=== PATIENT | male | born 1985 | race African-American/Black ===

== ENCOUNTER 2018-12-05 14:04 | Inpatient (IN) | payer OTHER ==
[2018-12-05 16:32] VITALS: BMI 20.3
--- NOTE | 2018-12-05 18:35 | HP ---
COWS - Scale Resting Pulse: 1= [place] 81-100 Sweatin=Flushed/Facial Moisture Restless Observation: 1= Difficult to Sit Still Pupil Size: 0= Normal to Room Light Bone or Joint Aches: 2= Severe Diffuse Aches Runny Nose/ Eye Tearin= Runny Nose/Eyes GI Upset > 30mins: 0= None Tremor Observation: 2= Slight Tremor Visible Yawning Observation: 2= >3x During Session Anxiety or Irritability: 2=Irritable/Anxious Goose Flesh Skin: 3=Piloerection COWS Score: 17 CIWA Score - Admission Criteria OASAS Guidelines: Admission for Medically Managed Detox: Requires at least one of the followin. CIWA greater than 12 2. Seizures within the past 24 hours 3. Delirium tremens within the past 24 hours 4. Hallucinations within the past 24 hours 5. Acute intervention needed for co occurring medical disorder 6. Acute intervention needed for co occurring psychiatric disorder 7. Severe withdrawal that cannot be handled at a lower level of care (continued vomiting, continued diarrhea, abnormal vital signs) requiring intravenous medication and/or fluids 8. Admitting History and Physical - Admission Chief Complaint: I want to stop being high. History Source: Patient Limitations to Obtaining History: No Limitations - Past Surgical History Past Surgical History: Yes: None - Smoking History Smoking history: Current every day smoker Have you smoked in the past 12 months: Yes Aproximately how many cigarettes per day: 10 - Alcohol/Substance Use Hx Alcohol Use: No History of Substance Use: reports: Cocaine, Heroin - Social History Usual Living Arrangement: Yes: Alone ADL: Independent History of Recent Travel: No Admission ROS [facility] - HPI Chief Complaint: I want to stop getting high. Allergies/Adverse Reactions: Allergies Allergy/AdvReac Type Severity Reaction Status Date / Time No Known Allergies Allergy Verified 12/05/18 16:26 History of Present Illness: pt is a 33yr old male with a history of heroin dependence seeking detox for treatment. pt states he has a cold. pt has a mild temp 101.3. encouraged pt to hydrate, ask for tylenol. pt was told if temp continue he will be sent to [facility] ed for evaluation. pt in agreement. Exam Limitations: No Limitations - Ebola screening Have you traveled outside of the country in the last 21 days: No Have you had contact with anyone from an Ebola affected area: No Have you been sick,other than usual withdrawal symptoms: No Do you have a fever: No - Review of Systems Constitutional: Chills, Diaphoresis, Night Sweats, Changes in sleep EENT: reports: Tearing, Hearing Loss, Nose Congestion Respiratory: reports: No Symptoms reported Cardiac: reports: No Symptoms Reported GI: reports: Poor Fluid Intake : reports: No Symptoms Reported Musculoskeletal: reports: Back Pain Integumentary: reports: Flushing, Sweating Neuro: reports: Tingling, Tremors Endocrine: reports: Excessive Sweating, Flushing, Intolerance to Cold, Intolerance to Heat Hematology: reports: No Symptoms Reported Psychiatric: reports: Judgement Intact, Mood/Affect Appropiate, Orientated x3, Agitated, Anxious Other Systems: Reviewed and Negative Patient History - Patient Medical History Hx Anemia: No Hx Asthma: No Hx Chronic Obstructive Pulmonary Disease (COPD): No Hx Cancer: No Hx Cardiac Disorders: No Hx Congestive Heart Failure: No Hx Hypertension: No Hx Hypercholesterolemia: No Hx Pacemaker: No HX Cerebrovascular Accident: No Hx Seizures: No Hx Dementia: No Hx Diabetes: No Hx Gastrointestinal Disorders: No Hx Liver Disease: No Hx Genitourinary Disorders: No Hx Sexually Transmitted Disorders: No Hx Renal Disease (ESRD): No Hx Thyroid Disease: No Hx Human Immunodeficiency Virus (HIV): No (pt denies) Hx Hepatitis C: No Hx Depression: No Hx Suicide Attempt: No (pt denies) Hx Bipolar Disorder: No Hx Schizophrenia: No - Patient Surgical History Past Surgical History: No - PPD History Previous Implant?: Yes Documented Results: Negative w/o proof Implanted On Prior R Admission?: Yes PPD to be Administered?: Yes - Reproductive History Patient is a Female of Child Bearing Age (11 -55 yrs old): No - Smoking Cessation Smoking history: Current every day smoker Have you smoked in the past 12 months: Yes Aproximately how many cigarettes per day: 10 Hx Chewing Tobacco Use: No Initiated information on smoking cessation: Yes 'Breaking Loose' booklet given: 12/05/18 - Substance & Tx. History Hx Alcohol Use: No Hx Substance Use: Yes Substance Use Type: Heroin Hx Substance Use Treatment: Yes (last detox a year ago at [facility]) - Substances abused Heroin Substance route: Injection Frequency: Daily Amount used: 1 bundle Age of first use: 25 Date of last use: 12/05/18 Admission Physical Exam [facility] - Vital Signs Vital Signs: Vital Signs - 24 hr 12/05/18 16:24 Temperature 101.3 F H Pulse Rate 82 Respiratory 16 Rate Blood Pressure 120/63 - Physical General Appearance: Yes: Appropriately Dressed, Moderate Distress, Tremorous, Irritable, Sweating, Anxious HEENTM: Yes: Normal Voice, Nasal Congestion, Rhinorrhea Respiratory: Yes: Lungs Clear, Normal Breath Sounds, No Respiratory Distress Breast: Yes: Within Normal Limits Cardiology: Yes: Regular Rhythm, Regular Rate, S1, S2 Abdominal: Yes: Normal Bowel Sounds, Non Tender, Soft Genitourinary: Yes: Within Normal Limits Back: Yes: Normal Inspection Musculoskeletal: Yes: full range of Motion, Gait Steady Extremities: Yes: Normal Capillary Refill, Normal Inspection, Non-Tender, Tremors Neurological: Yes: Fully Oriented, Alert, Normal Response Integumentary: Yes: Normal Color, Diaphoresis, Track [place] Lymphatic: Yes: Within Normal Limits - Diagnostic (1) Opioid dependence with withdrawal Current Visit: Yes Status: Chronic (2) Nicotine dependence Current Visit: Yes Status: Chronic Qualifiers: Nicotine product type: cigarettes Substance use status: uncomplicated Qualified Code(s): F17.210 - Nicotine dependence, cigarettes, uncomplicated Cleared for Admission [facility] - Detox or Rehab [facility] Level of Care: Medically Managed Detox Regimen/Protocol: Methadone Breathalyzer - Breathalyzer Breathalyzer: 0 Urine Drug Screen - Test Device Lot number: [id number] Expiration date: 08/12/30 - Control Is test valid?: Yes - Results Drug screen NEGATIVE: No Urine drug screen results: SONIA-Cocaine, FEN-Fentanyl, MOP-Opiates Inpatient Rehab Admission - Rehab Decision to Admit Inpatient rehab admission?: No
[2018-12-05] MEDS ORDERED: P-EPHED 60MG/TRIPROLIDI 2.5MG TABLET PO PRN (18:42)
[2018-12-05] MEDS ORDERED: MAGNESIUM HYDROX 2400MG/30ML ORAL SUSPENSION 30 ML CUP PO PRN (18:42)
[2018-12-05] MEDS ORDERED: BISMUTH SUBSALICYLATE 524 MG/30 ML UD PO PRN (18:42)
[2018-12-05] MEDS ORDERED: NICOTINE POLACRILEX 4 MG GUM BUC PRN (18:42)
[2018-12-05] MEDS ORDERED: cloNIDine HCL 0.1 MG TABLET PO PRN (18:42)
[2018-12-05] MEDS ORDERED: IBUPROFEN 400 MG TABLET (FP) PO PRN (18:42)
[2018-12-05] MEDS ORDERED: MAG HYDROX/AL HYDROX/SIMETH 30 ML UNIT-DOSE CUP PO PRN (18:42)
[2018-12-05] MEDS ORDERED: ONDANSETRON *ODT* 4 MG TABLET SL PRN (18:42)
[2018-12-05] MEDS ORDERED: hydrOXYzine PAMOATE 25 MG CAPSULE (FP) PO PRN (18:42)
[2018-12-05] MEDS ORDERED: MAGNESIUM CITRATE 300 ML BOTTLE PO PRN (18:42)
[2018-12-05] MEDS ORDERED: METHADONE HCL 10 MG TABLET (FOR DETOX USE ONLY) PO ONE (18:42)
[2018-12-05] MEDS ORDERED: METHOCARBAMOL 500 MG TABLET PO PRN (18:42)
[2018-12-05] MEDS ORDERED: MENTHOL/PHENOL 1 EACH UD MM PRN (18:42)
[2018-12-05] MEDS ORDERED: ACETAMINOPHEN 325 MG TABLET (FP) PO PRN ×2 (18:42)
[2018-12-05] MEDS: diazePAM 5 MG TABLET PO PRN (20:06)
[2018-12-05] MEDS: THIAMINE HCL 100 MG TABLET (FP) PO SCH (23:10)
[2018-12-06] MEDS ORDERED: METHADONE HCL 5 MG TABLET (FOR DETOX USE ONLY) ONE (08:52)
[2018-12-06] MEDS ORDERED: METHADONE HCL 10 MG TABLET (FOR DETOX USE ONLY) ONE (08:53)
[2018-12-06] MEDS: PRENATAL VITAMINS W/ FOLIC ACID TABLET (FP) PO SCH (09:39)
[2018-12-06 09:55] LABS: HEMATOCRIT 35.4 % (35.4-49); HEMOGLOBIN 11.3 GM/dL (11.7-16.9); MCH 26.6 pg (25.7-33.7); MCHC 31.8 g/dl (32.0-35.9); MEAN CELL VOLUME 83.7 fl (80-96); MEAN PLT VOLUME 7.4 fl (7.5-11.1); PLATELET COUNT 261 K/MM3 (134-434); RBC 4.23 M/mm3 (4.00-5.60); RDW 15.7 % (11.9-15.9); WHITE BLOOD COUNT 4.5 K/mm3 (4.0-10.0)
[2018-12-06] MEDS ORDERED: METHADONE (DETOX) 20 MG, METHADONE (DETOX) 5 MG PO ONE (10:00)
[2018-12-06 10:16] LABS: ALBUMIN 3.1 g/dl (3.4-5.0); BILIRUBIN,TOTAL 0.5 mg/dL (0.2-1); CALCIUM 8.7 mg/dL (8.5-10.1); CREATININE 0.8 mg/dL (0.55-1.3); POTASSIUM 4.2 mmol/L (3.5-5.1); TOT PROT 7.9 g/dl (6.4-8.2)
--- NOTE | 2018-12-06 11:06 | PN ---
BHS COWS - Scale Resting Pulse: 0= [place] 80 or Below Sweatin= No chills or Flushing Restless Observation: 1= Difficult to Sit Still Pupil Size: 1= Pupils >than Normal Bone or Joint Aches: 1= Mild Discomfort Runny Nose/ Eye Tearin= Nasal Congestion GI Upset > 30mins: 1= Stomach Cramp Tremor Observation of Outstretched Hands: 1= Tremor [place], Not Seen Yawning Observation: 1= 1-2x During Session Anxiety or Irritability: 2=Irritable/Anxious Goose Flesh Skin: 0=Smooth Skin COWS Score: 9 S Progress Note (SOAP) Subjective: alert,irritable,anxious,interrupted sleep,pain in the body and back Objective: 12/06/18 11:05 Vital Signs Temperature 98.6 F 12/06/18 09:40 Pulse Rate 71 12/06/18 09:40 Respiratory Rate 18 12/06/18 09:40 Blood Pressure 126/74 12/06/18 09:40 O2 Sat by Pulse Oximetry (%) Laboratory Last Values WBC 4.5 K/mm3 (4.0-10.0) 12/06/18 08:15 RBC 4.23 M/mm3 (4.00-5.60) 12/06/18 08:15 Hgb 11.3 GM/dL (11.7-16.9) L 12/06/18 08:15 Hct 35.4 % (35.4-49) 12/06/18 08:15 MCV 83.7 fl (80-96) 12/06/18 08:15 MCH 26.6 pg (25.7-33.7) 12/06/18 08:15 MCHC 31.8 g/dl (32.0-35.9) L 12/06/18 08:15 RDW 15.7 % (11.9-15.9) 12/06/18 08:15 Plt Count 261 K/MM3 (134-434) 12/06/18 08:15 MPV 7.4 fl (7.5-11.1) L 12/06/18 08:15 Sodium 139 mmol/L (136-145) 12/06/18 08:15 Potassium 4.2 mmol/L (3.5-5.1) 12/06/18 08:15 Chloride 105 mmol/L (98-107) 12/06/18 08:15 Carbon Dioxide 28 mmol/L (21-32) 12/06/18 08:15 Anion Gap 6 MMOL/L (8-16) L 12/06/18 08:15 BUN 10.0 mg/dL (7-18) 12/06/18 08:15 Creatinine 0.8 mg/dL (0.55-1.3) 12/06/18 08:15 Est GFR (CKD-EPI)AfAm 135.08 12/06/18 08:15 Est GFR (CKD-EPI)NonAf 116.55 12/06/18 08:15 Random Glucose 86 mg/dL (74-106) 12/06/18 08:15 Calcium 8.7 mg/dL (8.5-10.1) 12/06/18 08:15 Total Bilirubin 0.5 mg/dL (0.2-1) 12/06/18 08:15 AST 58 U/L (15-37) H 12/06/18 08:15 ALT 89 U/L (13-61) H 12/06/18 08:15 Alkaline Phosphatase 86 U/L (45-117) 12/06/18 08:15 Total Protein 7.9 g/dl (6.4-8.2) 12/06/18 08:15 Albumin 3.1 g/dl (3.4-5.0) L 12/06/18 08:15 Assessment: 12/06/18 11:06 withdrawal symptom Plan: continue detox methadone regimen
--- NOTE | 2018-12-06 13:37 | EKG ---
Test Reason : Blood Pressure : / mmHG Vent. Rate : 058 BPM Atrial Rate : 058 BPM P-R Int : 144 ms QRS Dur : 096 ms QT Int : 436 ms P-R-T Axes : 022 085 065 degrees QTc Int : 428 ms SINUS BRADYCARDIA OTHERWISE NORMAL ECG NO PREVIOUS ECGS AVAILABLE Confirmed by LORNA RILEY, PETE ([id number]) on 12/06/2018 1:36:58 PM Referred By: Confirmed By:PETE ROTHMAN MD
[2018-12-06] MEDS: MELATONIN 5 MG TABLETS PO PRN (22:26)
[2018-12-06] MEDS: THIAMINE HCL 100 MG TABLET (FP) PO SCH (22:26)
[2018-12-07] MEDS ORDERED: METHADONE HCL 10 MG TABLET (FOR DETOX USE ONLY) PO ONE (10:00)
[2018-12-07] MEDS: PRENATAL VITAMINS W/ FOLIC ACID TABLET (FP) PO SCH (10:13)
[2018-12-07 10:44] LABS: SGOT/AST 56 U/L (15-37); SGPT/ALT 93 U/L (13-61)
--- NOTE | 2018-12-07 10:48 | PN ---
BHS COWS - Scale Resting Pulse: 0= [place] 80 or Below Sweatin= No chills or Flushing Restless Observation: 1= Difficult to Sit Still Pupil Size: 1= Pupils >than Normal Bone or Joint Aches: 1= Mild Discomfort Runny Nose/ Eye Tearin= Nasal Congestion GI Upset > 30mins: 1= Stomach Cramp Tremor Observation of Outstretched Hands: 1= Tremor [place], Not Seen Yawning Observation: 0= None Anxiety or Irritability: 2=Irritable/Anxious Goose Flesh Skin: 0=Smooth Skin COWS Score: 8 BHS Progress Note (SOAP) Subjective: alert,irritable,anxious,interrupted sleep,pain in the body, Objective: 12/07/18 10:47 Vital Signs Temperature 98.4 F 12/07/18 09:34 Pulse Rate 66 12/07/18 09:34 Respiratory Rate 18 12/07/18 09:34 Blood Pressure 112/63 12/07/18 09:34 O2 Sat by Pulse Oximetry (%) Laboratory Results - last 24 hr 12/06/18 12/07/18 08:15 07:20 AST 56 H ALT 93 H RPR Titer Nonreactive Assessment: 12/07/18 10:48 withdrawal symptom Plan: continue detox methdone regimen
[2018-12-07] MEDS: diazePAM 5 MG TABLET PO PRN (22:21)
[2018-12-07] MEDS: THIAMINE HCL 100 MG TABLET (FP) PO SCH (22:22)
[2018-12-08] MEDS ORDERED: METHADONE HCL 10 MG TABLET (FOR DETOX USE ONLY) ONE (09:52)
[2018-12-08] MEDS ORDERED: METHADONE HCL 5 MG TABLET (FOR DETOX USE ONLY) ONE (09:52)
[2018-12-08] MEDS ORDERED: METHADONE (DETOX) 10 MG, METHADONE (DETOX) 5 MG PO ONE (10:00)
[2018-12-08] MEDS: PRENATAL VITAMINS W/ FOLIC ACID TABLET (FP) PO SCH (10:43)
--- NOTE | 2018-12-08 11:45 | PN ---
S COWS - Scale Resting Pulse: 0= [place] 80 or Below Sweatin= Chills/Flushing Restless Observation: 1= Difficult to Sit Still Pupil Size: 0= Normal to Room Light Bone or Joint Aches: 2= Severe Diffuse Aches Runny Nose/ Eye Tearin= None GI Upset > 30mins: 0= None Tremor Observation of Outstretched Hands: 2= Slight Tremor Visible Yawning Observation: 1= 1-2x During Session Anxiety or Irritability: 2=Irritable/Anxious Goose Flesh Skin: 0=Smooth Skin COWS Score: 9 S Progress Note (SOAP) Subjective: c/o sweats, headache, anxiety, and irritability. Objective: 12/08/18 11:44 Vital Signs 12/08/18 12/08/18 06:27 08:00 Temperature 98.6 F 98.2 F Pulse Rate 61 65 Respiratory 18 18 Rate Blood Pressure 108/67 107/57 L Lab Results WBC 4.5 K/mm3 (4.0-10.0) 12/06/18 08:15 RBC 4.23 M/mm3 (4.00-5.60) 12/06/18 08:15 Hgb 11.3 GM/dL (11.7-16.9) L 12/06/18 08:15 Hct 35.4 % (35.4-49) 12/06/18 08:15 MCV 83.7 fl (80-96) 12/06/18 08:15 MCHC 31.8 g/dl (32.0-35.9) L 12/06/18 08:15 RDW 15.7 % (11.9-15.9) 12/06/18 08:15 Plt Count 261 K/MM3 (134-434) 12/06/18 08:15 Sodium 139 mmol/L (136-145) 12/06/18 08:15 Potassium 4.2 mmol/L (3.5-5.1) 12/06/18 08:15 Chloride 105 mmol/L (98-107) 12/06/18 08:15 Carbon Dioxide 28 mmol/L (21-32) 12/06/18 08:15 Anion Gap 6 MMOL/L (8-16) L 12/06/18 08:15 BUN 10.0 mg/dL (7-18) 12/06/18 08:15 Creatinine 0.8 mg/dL (0.55-1.3) 12/06/18 08:15 Random Glucose 86 mg/dL (74-106) 12/06/18 08:15 Calcium 8.7 mg/dL (8.5-10.1) 12/06/18 08:15 Labs noted. Assessment: 12/08/18 11:45 AOX3, in no acute respiratory distress. Full ROM, ambulating in the unit. withdrawal symptoms. Plan: continue detox.
[2018-12-08] MEDS: MELATONIN 5 MG TABLETS PO PRN (22:23)
[2018-12-08] MEDS: THIAMINE HCL 100 MG TABLET (FP) PO SCH (22:23)
[2018-12-09] MEDS ORDERED: METHADONE HCL 10 MG TABLET (FOR DETOX USE ONLY) PO ONE (10:00)
[2018-12-09] MEDS: PRENATAL VITAMINS W/ FOLIC ACID TABLET (FP) PO SCH (10:35)
--- NOTE | 2018-12-09 13:45 | PN ---
BHS COWS - Scale Resting Pulse: 0= [place] 80 or Below Sweatin= No chills or Flushing Restless Observation: 0= Sits Still Pupil Size: 0= Normal to Room Light Bone or Joint Aches: 1= Mild Discomfort Runny Nose/ Eye Tearin= None GI Upset > 30mins: 1= Stomach Cramp Tremor Observation of Outstretched Hands: 0= None Yawning Observation: 1= 1-2x During Session Anxiety or Irritability: 2=Irritable/Anxious Goose Flesh Skin: 0=Smooth Skin COWS Score: 5 BHS Progress Note (SOAP) Subjective: Chills Objective: 12/09/18 13:44 Last Vital Signs Temp Pulse Resp BP Pulse Ox 98.2 F 79 18 103/59 L 12/09/18 09:42 12/09/18 09:42 12/09/18 09:42 12/09/18 09:42 Laboratory Tests 12/06/18 12/06/18 12/06/18 08:15 08:15 08:15 WBC 4.5 RBC 4.23 Hgb 11.3 L Hct 35.4 MCV 83.7 MCH 26.6 MCHC 31.8 L RDW 15.7 Plt Count 261 MPV 7.4 L Sodium 139 Potassium 4.2 Chloride 105 Carbon Dioxide 28 Anion Gap 6 L BUN 10.0 Creatinine 0.8 Est GFR (CKD-EPI)AfAm 135.08 Est GFR (CKD-EPI)NonAf 116.55 Random Glucose 86 Calcium 8.7 Total Bilirubin 0.5 AST 58 H ALT 89 H Alkaline Phosphatase 86 Total Protein 7.9 Albumin 3.1 L RPR Titer Nonreactive 12/07/18 07:20 WBC RBC Hgb Hct MCV MCH MCHC RDW Plt Count MPV Sodium Potassium Chloride Carbon Dioxide Anion Gap BUN Creatinine Est GFR (CKD-EPI)AfAm Est GFR (CKD-EPI)NonAf Random Glucose Calcium Total Bilirubin AST 56 H ALT 93 H Alkaline Phosphatase Total Protein Albumin RPR Titer Labs reviewed Assessment: 12/09/18 13:44 Withdrawal sxs Plan: Continue detox Encouraged PO water intake Patient scheduled for discharge tomorrow
[2018-12-09 17:45] VITALS: BP 113/67; PULSE 86; TEMP 99
--- NOTE | 2018-12-09 17:57 | PN ---
S Progress Note Note: paient is stable for discharge today,follow up with after care program as arrangement
--- NOTE | 2018-12-09 18:00 | DS ---
[facility] Detox Discharge Summary Admission Date: 12/05/18 Discharge Date: 12/09/18 - History Present History: Opioid Dependence Additional Comments: stable for discharge today,follow up with after care program as arrangement Pertinent Past History: nicotine dependence - Physical Exam Results Vital Signs: Vital Signs Temperature 99 F 12/09/18 17:44 Pulse Rate 86 12/09/18 17:44 Respiratory Rate 16 12/09/18 17:44 Blood Pressure 113/67 12/09/18 17:44 O2 Sat by Pulse Oximetry (%) Pertinent Admission Physical Exam Findings: withdrawal sign and symptom Laboratory Last Values WBC 4.5 K/mm3 (4.0-10.0) 12/06/18 08:15 RBC 4.23 M/mm3 (4.00-5.60) 12/06/18 08:15 Hgb 11.3 GM/dL (11.7-16.9) L 12/06/18 08:15 Hct 35.4 % (35.4-49) 12/06/18 08:15 MCV 83.7 fl (80-96) 12/06/18 08:15 MCH 26.6 pg (25.7-33.7) 12/06/18 08:15 MCHC 31.8 g/dl (32.0-35.9) L 12/06/18 08:15 RDW 15.7 % (11.9-15.9) 12/06/18 08:15 Plt Count 261 K/MM3 (134-434) 12/06/18 08:15 MPV 7.4 fl (7.5-11.1) L 12/06/18 08:15 Sodium 139 mmol/L (136-145) 12/06/18 08:15 Potassium 4.2 mmol/L (3.5-5.1) 12/06/18 08:15 Chloride 105 mmol/L (98-107) 12/06/18 08:15 Carbon Dioxide 28 mmol/L (21-32) 12/06/18 08:15 Anion Gap 6 MMOL/L (8-16) L 12/06/18 08:15 BUN 10.0 mg/dL (7-18) 12/06/18 08:15 Creatinine 0.8 mg/dL (0.55-1.3) 12/06/18 08:15 Est GFR (CKD-EPI)AfAm 135.08 12/06/18 08:15 Est GFR (CKD-EPI)NonAf 116.55 12/06/18 08:15 Random Glucose 86 mg/dL (74-106) 12/06/18 08:15 Calcium 8.7 mg/dL (8.5-10.1) 12/06/18 08:15 Total Bilirubin 0.5 mg/dL (0.2-1) 12/06/18 08:15 AST 56 U/L (15-37) H 12/07/18 07:20 ALT 93 U/L (13-61) H 12/07/18 07:20 Alkaline Phosphatase 86 U/L (45-117) 12/06/18 08:15 Total Protein 7.9 g/dl (6.4-8.2) 12/06/18 08:15 Albumin 3.1 g/dl (3.4-5.0) L 12/06/18 08:15 RPR Titer Nonreactive (NONREACTIVE) 12/06/18 08:15 - Treatment Hospital Course: Detox Protocol Followed, Detoxed Safely, Responded well, Discharged Condition Good Patient has Accepted a Rehab Referral to: declined - Medication Discharge Medications: Ambulatory Orders NK [No Known Home Medication] 12/05/18 - Diagnosis (1) Nicotine dependence Current Visit: Yes Status: Chronic Qualifiers: Nicotine product type: cigarettes Substance use status: uncomplicated Qualified Code(s): F17.210 - Nicotine dependence, cigarettes, uncomplicated (2) Opioid dependence with withdrawal Current Visit: Yes Status: Chronic - AMA Did Patient Leave Against Medical Advice: No
[2018-12-10] MEDS ORDERED: METHADONE HCL 5 MG TABLET (FOR DETOX USE ONLY) PO ONE (06:00)
== END 2018-12-09 18:28 | disposition home or self-care (01) | DRG 773 ==
LOC: YASAS 14:04 → Y6N 19:07
PROVIDERS: ADMIT Allergy & Immunology; ATTEND Allergy & Immunology
PROC: HZ2ZZZZ Detoxification Services for Substance Abuse Treatment (ICD-10-PCS; principal; 2018-12-05)
DX: F11.23 Opioid dependence with withdrawal (principal); F14.20 Cocaine dependence, uncomplicated; F17.210 Nicotine dependence, cigarettes, uncomplicated
CPT/HCPCS: 36415; 80053; 84450; 84460; 85027; 86593; 93005; 93010

== ENCOUNTER 2019-08-07 09:25 | Inpatient (IN) | payer OTHER ==
[2019-08-07] MEDS ORDERED: MAG HYDROX/AL HYDROX/SIMETH 30 ML UNIT-DOSE CUP PO PRN (10:33)
[2019-08-07] MEDS ORDERED: MENTHOL/PHENOL 1 EACH UD MM PRN (10:33)
[2019-08-07] MEDS ORDERED: MAGNESIUM HYDROX 2400MG/30ML ORAL SUSPENSION 30 ML CUP PO PRN (10:33)
[2019-08-07] MEDS ORDERED: BISMUTH SUBSALICYLATE 262 MG/15 ML BTL PO PRN (10:33)
[2019-08-07] MEDS ORDERED: MAGNESIUM CITRATE 300 ML BOTTLE PO PRN (10:33)
[2019-08-07] MEDS ORDERED: NICOTINE POLACRILEX 2 MG GUM BUC PRN (10:33)
[2019-08-07] MEDS ORDERED: ONDANSETRON *ODT* 4 MG TABLET SL ONE (10:33)
[2019-08-07] MEDS ORDERED: METHADONE HCL 10 MG TABLET (FOR DETOX USE ONLY) PO ONE (10:33)
[2019-08-07] MEDS ORDERED: IBUPROFEN 400 MG TABLET (FP) PO PRN (10:33)
[2019-08-07] MEDS ORDERED: ACETAMINOPHEN 325 MG TABLET (FP) PO PRN ×2 (10:33)
[2019-08-07] MEDS ORDERED: cloNIDine HCL 0.1 MG TABLET PO PRN (10:33)
[2019-08-07 11:02] VITALS: BMI 21.8
[2019-08-07] MEDS: PRENATAL VITAMINS W/ FOLIC ACID TABLET (FP) PO SCH (12:04)
[2019-08-07] MEDS: NICOTINE 7 MG/24 HOURS TOPICAL PATCH TD SCH (12:04)
[2019-08-07] MEDS ORDERED: hydrOXYzine PAMOATE 25 MG CAPSULE (FP) PO PRN (12:43)
[2019-08-07] MEDS ORDERED: hydrOXYzine PAMOATE 25 MG CAPSULE (FP) PO SCH (14:00)
[2019-08-07 14:41] LABS: HEMATOCRIT 30.7 % (35.4-49); MCH 27.7 pg (25.7-33.7); MCHC 32.4 g/dl (32.0-35.9); MEAN CELL VOLUME 85.4 fl (80-96); MEAN PLT VOLUME 8.3 fl (7.5-11.1); PLATELET COUNT 232 K/MM3 (134-434); RDW 15.2 % (11.9-15.9); WHITE BLOOD COUNT 4.8 K/mm3 (4.0-10.0)
[2019-08-07 14:49] LABS: ALBUMIN 3.3 g/dl (3.4-5.0); BILIRUBIN,TOTAL 0.7 mg/dL (0.2-1); BLOOD UREA NITROGEN 10.4 mg/dL (7-18); CALCIUM 8.8 mg/dL (8.5-10.1); CREATININE 0.9 mg/dL (0.55-1.3); POTASSIUM 3.8 mmol/L (3.5-5.1); TOT PROT 8.3 g/dl (6.4-8.2)
[2019-08-07 15:36] LABS: HIV INTERPRETATION NEGATIVE (NEGATIVE)
[2019-08-07] MEDS: THIAMINE HCL 100 MG TABLET (FP) PO SCH (22:12)
[2019-08-07] MEDS: METHOCARBAMOL 500 MG TABLET PO PRN (22:12)
[2019-08-07] MEDS: MELATONIN 5 MG TABLETS PO SCH (23:19)
[2019-08-08] MEDS ORDERED: diazePAM 5 MG TABLET PO PRN (09:48)
[2019-08-08] MEDS ORDERED: METHADONE HCL 10 MG TABLET (FOR DETOX USE ONLY) ONE (09:53)
[2019-08-08] MEDS ORDERED: METHADONE HCL 5 MG TABLET (FOR DETOX USE ONLY) ONE (09:53)
[2019-08-08] MEDS ORDERED: METHADONE (DETOX) 20 MG, METHADONE (DETOX) 5 MG PO ONE (10:00)
[2019-08-08] MEDS: PRENATAL VITAMINS W/ FOLIC ACID TABLET (FP) PO SCH (11:15)
[2019-08-08] MEDS: NICOTINE 7 MG/24 HOURS TOPICAL PATCH TD SCH (11:15)
[2019-08-08] MEDS: THIAMINE HCL 100 MG TABLET (FP) PO SCH (22:06)
[2019-08-08] MEDS: MELATONIN 5 MG TABLETS PO SCH (22:07)
[2019-08-09 09:56] VITALS: BP 110/70; PULSE 61; TEMP 97.7
[2019-08-09 10:00] LABS: HEMATOCRIT 35.5 % (35.4-49); HEMOGLOBIN 11.3 GM/dL (11.7-16.9); MCH 26.8 pg (25.7-33.7); MCHC 31.7 g/dl (32.0-35.9); MEAN CELL VOLUME 84.5 fl (80-96); PLATELET COUNT 241 K/MM3 (134-434); RBC 4.21 M/mm3 (4.00-5.60); WHITE BLOOD COUNT 3.9 K/mm3 (4.0-10.0)
[2019-08-09] MEDS ORDERED: METHADONE HCL 10 MG TABLET (FOR DETOX USE ONLY) PO ONE (10:00)
[2019-08-09] MEDS: PRENATAL VITAMINS W/ FOLIC ACID TABLET (FP) PO SCH (10:36)
[2019-08-09] MEDS: NICOTINE 7 MG/24 HOURS TOPICAL PATCH TD SCH (10:36)
[2019-08-09] MEDS: METHOCARBAMOL 500 MG TABLET PO PRN (10:37)
[2019-08-10] MEDS ORDERED: METHADONE (DETOX) 10 MG, METHADONE (DETOX) 5 MG PO ONE (10:00)
[2019-08-11] MEDS ORDERED: METHADONE HCL 10 MG TABLET (FOR DETOX USE ONLY) PO ONE (10:00)
[2019-08-12] MEDS ORDERED: METHADONE HCL 5 MG TABLET (FOR DETOX USE ONLY) PO ONE (06:00)
== END 2019-08-09 11:56 | disposition left against medical advice (07) | DRG 770 ==
LOC: YASAS 09:25 → Y6N 10:55
PROVIDERS: ADMIT Allergy & Immunology; ATTEND Allergy & Immunology
PROC: HZ2ZZZZ Detoxification Services for Substance Abuse Treatment (ICD-10-PCS; principal; 2019-08-07)
DX: F11.23 Opioid dependence with withdrawal (principal); F14.20 Cocaine dependence, uncomplicated; F17.210 Nicotine dependence, cigarettes, uncomplicated; D64.9 Anemia, unspecified; R74.0 Nonspecific elevation of levels of transaminase and lactic acid dehydrogenase [LDH]; Z59.0 Homelessness
CPT/HCPCS: 36415; 80053; 85027; 86780; 87389; U0003